=== PATIENT | male | born 1960 | race Caucasian/White ===

== ENCOUNTER 2018-01-14 14:44 | Emergency (ER) | payer OTHER ==
[~2018-01-14] VITALS: Ht 167.6 cm; Wt 115.7 kg
[2018-01-14 14:49] VITALS: BP 153/71
--- NOTE | 2018-01-14 15:17 | NUR ---
PT BEING SEEN BY DR. HOOPER.
--- NOTE | 2018-01-14 15:18 | NUR ---
PATIENT PRESENTS TO ED WITH THE CHIEF C/O PAIN ON RIGHT SIDE OF HEAD THAT RADIATES TO HIS RIGHT JAW. PT STATES PAIN STATED PAIN STARTED AND GOT WORSE 2 DAYS AGO. DENIES N/V/D; SKIN IS PINK/WARM/DRY; AAOX4 WITH EVEN AND STEADY GAIT. PT DENIES ANY FEVER, CP, SOB, OR COUGH AT THIS TIME; PATIENT STATES PAIN OF 7/10 AT THIS TIME; VSS; PATIENT POSITIONED FOR COMFORT; HOB ELEVATED; BEDRAILS UP X2; BED DOWN. ER MD MADE AWARE OF PT STATUS.
--- NOTE | 2018-01-14 15:28 | NUR ---
Patient being evaluated by physician at bedside.
[2018-01-14] MEDS ORDERED: DEXAMETHASONE 10 MG/ML VIAL IM ONE (15:30)
[2018-01-14 17:14] VITALS: BP 150/68
--- NOTE | 2018-01-14 17:14 | NUR ---
Patient discharged with v/s stable. Written and verbal after care instructions given and explained. patient alert, oriented and verbalized understanding of instructions. Ambulatory with steady gait. All questions addressed prior to discharge. ID band removed. Patient advised to follow up with PMD. Rx of famvir and prednisone given. Patient educated on indication of medication including possible reaction and side effects. Opportunity to ask questions provided and answered.
== END 2018-01-14 17:14 | disposition home or self-care (01) ==
LOC: MED 14:44
DX: G51.0 Bell's palsy (principal)
CPT/HCPCS: 70450; 96372; 99284; J1100